=== PATIENT | male | born 1945 | race Caucasian/White ===

== ENCOUNTER 2023-03-29 08:52 | Emergency (ER) | payer MEDICARE, SELFPAY ==
[2023-03-29 08:56] VITALS: BP 167/114
[2023-03-29 08:57] VITALS: BMI 29.8
[2023-03-29 09:00] VITALS: BP 167/114; BP 172/102
--- NOTE | 2023-03-29 09:38 | ED.GENMED ---
History of Present Illness
General
Chief Complaint: Dizziness
Source: patient
Exam Limitations: none
Time Seen by Provider: 03/29/23 09:11
Nursing documentation reviewed up to this point in time: agreed with
Travel History
Have you had any contact with someone who has COVID-19?: No
Do you have any symptoms of coronavirus? Fever > 100 degrees, chills, cough, shortness of breath, sore throat, loss of taste or smell, muscle aches, or headache?: No
History of Present Illness
History of Present Illness:
Patient is a 77-year-old male who presents to the ER for evaluation. Patient reports he was at home today when he felt lightheaded. He reports it lasted for about a minute. He reports he was up last night and was unable to sleep. He was
urinating about once an hour. He denied any pain with urination. Denies any nausea vomiting back pain. He does feel like he is completely emptying his bladder. He denies any recent illness, fever/chills. Denies any associated shortness of
breath, chest pain. Denies any headache.
Past History
Past History
ED Past Medical History: HTN and Hypercholesterolemia
ED Past Surgical History: None
Social History
Tobacco: Non-smoker
Alcohol: None
Drug: None
Personal:
Living: with family
Review of Systems
Review of Systems
Allergies reviewed?: Yes
All Other Systems: ROS reviewed and negative except as documented in HPI and ROS
Constitutional: Reports no symptoms; Denies fever, fatigue or chills
Respiratory: Reports no symptoms; Denies trouble breathing
Cardiac: Reports no symptoms; Denies chest pain
ABD/GI: Reports no symptoms
Musculoskeletal: Reports no symptoms
Skin: Reports no symptoms
Neurological: Reports no symptoms
Psychiatric: Reports no symptoms
Phy Exam
General Physical Exam
General Presentation: no apparent distress
General age: appears stated age
General Skin: warm and dry
General Habitus: normal
General Mental: alert
General Hydration: appears well hydrated
Neurological Exam
Neurological Exam: alert
Musculoskeletal Exam
Musculoskeletal Exam: full ROM
Skin Exam
Skin Exam: normal color and warm/dry
Course
Orders/Labs/Results
Orders:
Orders
03/29/23 08:57
ECG [Electrocardiogram (*1)] Urgent
Reason for Study: Syncope
EKG- Treatment ONCE
03/29/23 09:47
Cardiac Monitoring- Treatment ONCE
IV Insert/Care/Rem.- Treatment PRN
0.9% Sodium Chloride 1000 ml [Nss] 1,000 ml IV BOLUS
03/29/23 10:23
Basic Metabolic Panel Urgent
Complete Blood Count/With Diff Urgent
UA Reflex to Culture [Urinalysis Reflex To Culture] Urgent
Date Specimen was Collected: 03/29/23
Time Specimen was Collected: 10:20
Abnormal Lab Results
03/29/23
10:23
MCH 32.3 H pg
(27.0-31.0)
Plt Count 128 L 10^3/uL
(130-400)
MPV 10.7 H fL
(7.4-10.4)
Absolute Lymphs (auto) 0.7 L 10^3/uL
(1.2-3.4)
Neutrophils % 83.2 H %
(42.2-75.2)
Lymphocytes % 11.3 L %
(20.5-51.1)
Creatinine 0.6 L mg/dL
(0.7-1.3)
Glucose 123 H mg/dl
(70-99)
03/29/23 10:23
03/29/23 10:23
Vital Signs
Initial and Last Documented VS:
Initial Vital Signs
Pulse Resp
67 24
03/29/23 08:55 03/29/23 08:55
Last Documented Vital Signs
Temp Pulse Resp BP Pulse Ox
98.1 F 74 22 152/90 95
03/29/23 09:00 03/29/23 11:00 03/29/23 11:00 03/29/23 11:00 03/29/23 09:15
MDM/Problems Addressed
Differential Diagnosis Includes:
not limited to: Dehydration electrolyte abnormality
MDM/Problems Addressed:
Patient is a 77-year-old male who presented to the ER for evaluation. Patient was up throughout the night and reports he does get this occasionally where he cannot sleep he was urinating a lot but this morning had an episode of lightheadedness
lasted for a minute which the prompted him to come to the ER. He is currently asymptomatic. He denies any associated chest pain shortness of breath with the. He presents awake alert no acute distress. Patient does have a history of hypertension
he does present hypertensive here but denies any recent fevers and is afebrile with a normal white count, normal chemistries, normal UA.
No acute EKG changes. Case d/c w/ ED physician who eval pt. pt stable for d/c home no acute findings
Chronic conditions affecting care:
Hypertension high cholesterol
*Pulse Oximetry
Patient hypoxic: no
*EKG
Heart Rate: 65
Rate: normal
Rhythm: sinus
Interval: first degree heart block
QRS Pattern: right bundle branch block
*Critical Care Note
Total Time (30-74mins, 75-104mins- exclusive of procedures): Not Applicable
Data Reviewed
Review of Other/Old Records Reveals: Other (Echo reviewed from 03/30 shows EF of 55-60% biatrial enlargement mild calcific aortic stenosis )
ED Attending Note
-
Portions of this chart may have been created with voice recognition software.� Occasional wrong word or��sound alike� substitutions may have occurred due to the inherent limitations of voice recognition software.
Discharge Plan
Departure
Patient Disposition: Home (Routine Discharge)
Date of Disposition: 03/29/23
Time of Disposition: 12:17
Patient with high blood pressure during this ER visit?: Yes
Condition: Fair
Covid-19: Not Applicable
Discharge Problem:
Lightheadedness
Instructions: Dizziness, Adult ED, BLOOD PRESSURE
Referrals:
Nasreen Norris MD [Family Provider] -
Activity Restrictions/Additional Instructions:
Stay well-hydrated. Follow-up with your family doctor in the next 2 days for reevaluation. The medication for sleep is called doxylamine.
Return if any worsening of symptoms
Interventions
Interventions:
*Risk Screen - Suicide Last Done: 03/29/23 09:07
*General Assessment Last Done: 03/29/23 09:07
*Neglect/Abuse Screening Last Done: 03/29/23 09:07
*ED COVID-19 Vaccine History Last Done: 03/29/23 09:07
ED- Neurological Assessment Last Done: 03/29/23 11:11
ED- Cardiac Assessment Last Done: 03/29/23 09:07
[2023-03-29 10:38] LABS: Urine Albumin Negative (Neg - Trace); Urine Bilirubin Negative (Negative); Urine Character Clear (Clear); Urine Color Yellow; Urine Glucose Negative (Negative); Urine Ketone Negative (Negative); Urine Leukocyte Negative (Negative); Urine Nitrite Negative (Negative); Urine Occult Blood Negative (Negative); Urine Specific Gravity 1.005 (<1.030); Urine Urobilinogen Negative (Neg - 1+)
[2023-03-29 10:41] LABS: % Basophils 0.3 % (0-2); % Eosinophils 0.2 % (0-6); % Immature Granulocytes 0.3 % (0-0.5); % Lymphocytes 11.3 % (20.5-51.1); % Monocytes 4.7 % (1.7-9.3); % Neutrophils 83.2 % (42.2-75.2); Absolute Lymphocytes 0.7 10^3/uL (1.2-3.4); Absolute Monocytes 0.3 10^3/uL (0.1-0.6); Absolute Neutrophils 4.9 10^3/uL (1.4-6.5); Hematocrit 46.2 % (39.0-52.0); Hemoglobin 16.6 g/dL (13.0-18.0); Mean Corp Hgb Conc. 35.9 g/dL (33.0-37.0); Mean Corpuscular Hgb 32.3 pg (27.0-31.0); Mean Corpuscular Volume 89.9 fL (80.0-94.0); Mean Platelet Volume 10.7 fL (7.4-10.4); Nucleated Red Blood Cells % 0 % (-); Platelet Count 128 10^3/uL (130-400); Red Blood Cell Count 5.14 10^6/uL (4.70-6.10); Red Cell Dist. Width 12.7 % (11.5-14.5); White Blood Cell Count 5.9 10^3/uL (4.8-10.8)
[2023-03-29] MEDS: NSS 1000 IV (10:42)
[2023-03-29 10:44] VITALS: BP 150/101
[2023-03-29 10:45] VITALS: BP 150/101
[2023-03-29 10:59] LABS: Blood Urea Nitrogen 17 mg/dl (9-20); Carbon Dioxide 27 mmol/L (22-30); Chloride 104 mmol/L (98-107); Estimated Creatinine Clearance 114 ml/min; Glucose 123 mg/dl (70-99); Sodium 135 mmol/L (135-145); eGFR > 60.00
[2023-03-29 11:00] VITALS: BP 152/90
== END 2023-03-29 12:57 | disposition home or self-care (01) ==
LOC: EMR 08:52
PROVIDERS: Nurse Practitioner; EMERGENCY PHYSICIAN Emergency Medicine; FAMILY PHYSICIAN Family Medicine
DX: R42 Dizziness and giddiness (principal); I10 Essential (primary) hypertension
CPT/HCPCS: 99284; 96360; 80048; 81003; 85025; 93005

== ENCOUNTER → 2023-05-10 14:29 | Outpatient (REF) | payer MEDICARE, SELFPAY | LOC: RCS 14:29 | PROVIDERS: ATTENDING PHYSICIAN Nurse Practitioner; FAMILY PHYSICIAN Family Medicine | DX: I10 Essential (primary) hypertension (principal); I25.10 Atherosclerotic heart disease of native coronary artery without angina pectoris; E78.00 Pure hypercholesterolemia, unspecified; I77.810 Thoracic aortic ectasia; I35.0 Nonrheumatic aortic (valve) stenosis | CPT/HCPCS: 71250; 93306 ==

== ENCOUNTER → 2023-07-06 06:34 | Day surgery (SDC) | payer MEDICARE, SELFPAY | LOC: GI 06:34 | PROVIDERS: ATTENDING PHYSICIAN Internal Medicine | DX: Z12.11 Encounter for screening for malignant neoplasm of colon (principal); D12.3 Benign neoplasm of transverse colon; D12.5 Benign neoplasm of sigmoid colon; K57.30 Diverticulosis of large intestine without perforation or abscess without bleeding; K64.9 Unspecified hemorrhoids; N40.0 Benign prostatic hyperplasia without lower urinary tract symptoms | CPT/HCPCS: 45385; 45380; 88305 ==

== ENCOUNTER → 2024-06-06 10:32 | Outpatient (REF) | payer MEDICARE, SELFPAY | LOC: HWRAD 10:32 | PROVIDERS: ATTENDING PHYSICIAN Internal Medicine Cardiovascular Disease; FAMILY PHYSICIAN Family Medicine; REFERRING PHYSICIAN Specialist | DX: I77.810 Thoracic aortic ectasia (principal); N43.3 Hydrocele, unspecified | CPT/HCPCS: 71250 ==

== ENCOUNTER → 2024-06-12 09:12 | Outpatient (REF) | payer MEDICARE, SELFPAY ==
[2024-06-12 10:33] LABS: Hematocrit 42.4 % (39.0-52.0); Hemoglobin 14.3 g/dL (13.0-18.0); Mean Corp Hgb Conc. 33.7 g/dL (33.0-37.0); Mean Corpuscular Hgb 32.4 pg (27.0-31.0); Mean Corpuscular Volume 96.1 fL (80.0-94.0); Mean Platelet Volume 9.6 fL (7.4-10.4); Platelet Count 255 10^3/uL (130-400); Red Blood Cell Count 4.41 10^6/uL (4.70-6.10); Red Cell Dist. Width 12.1 % (11.5-14.5); White Blood Cell Count 8.1 10^3/uL (4.8-10.8)
[2024-06-12 11:04] LABS: Blood Urea Nitrogen 20 mg/dl (9-20); Calcium 9.2 mg/dl (8.4-10.2); Carbon Dioxide 29 mmol/L (22-30); Chloride 103 mmol/L (98-107); Glucose 104 mg/dl (70-99); Potassium 4.2 mmol/L (3.5-5.1); Sodium 140 mmol/L (135-145); eGFR > 60.00
== END ==
LOC: SDSPAT 09:12
PROVIDERS: ATTENDING PHYSICIAN Specialist; FAMILY PHYSICIAN Family Medicine
DX: Z01.818 Encounter for other preprocedural examination (principal)
CPT/HCPCS: 36415; 80048; 85027

== ENCOUNTER 2024-06-13 06:23 | Day surgery (SDC) | payer MEDICARE, SELFPAY ==
[2024-06-12 11:51] VITALS: BMI 25.6
[2024-06-13] VITALS (13 sets, daily range): BP systolic 116–154; BP diastolic 69–87; BMI 25.6
--- NOTE | 2024-06-13 18:49 | W.PN.URO.CBU ---
Today's Communication / Plan
-
exoect drainage in scrotal drssing reinforce or replace
Assessment / Plan
-
iv ice analgesic
Diagnosis
-
Date of Service: June 13, 2024
-
Patient Diagnosis:rt hemiscroatl abscecc drianed debrided has renate drain bottom of scrotum
Post Op Day: 0
Subjective
-
sore
Objective
-
Vital Signs
Temp Pulse Resp BP Pulse Ox
97.9 F 69 18 154/87 95
06/13/24 15:00 06/13/24 15:00 06/13/24 15:00 06/13/24 15:00 06/13/24 15:00
Review of Systems
-
: Other (tender post op)
Physical Exam
-
General - well developed, well nourished, no acute distress
Chest - clear bilaterally
Abdomen - soft, non-tender, positive bowel sounds, no CVAT, no incisional pain or distention
Genitalia - normal
Rectal - normal
Skin - warm & dry with no rash
Neuro - AOx3, no motor deficits
Extremities - no clubbing, no cyanosis, no edema
Incision - clean, dry
Dressing - clean, dry, intactwet min blood
Care Review
Data Reviewed
Discussed with: Nursing and Family
[2024-06-13] MEDS: TORADOL 15 MG IV (19:15)
[2024-06-13 19:32] LABS: Hematocrit 37.1 % (39.0-52.0); Hemoglobin 12.8 g/dL (13.0-18.0)
[2024-06-13] MEDS: NSS with KCL 20 MEQ 1000 IV (19:42)
[2024-06-13 19:51] LABS: Blood Urea Nitrogen 20 mg/dl (9-20); Calcium 8.1 mg/dl (8.4-10.2); Carbon Dioxide 23 mmol/L (22-30); Chloride 104 mmol/L (98-107); Estimated Creatinine Clearance 95 ml/min; Glucose 119 mg/dl (70-99); Potassium 3.9 mmol/L (3.5-5.1); Sodium 138 mmol/L (135-145); eGFR > 60.00
[2024-06-13] MEDS: TOPROL XL 25 MG PO (21:53)
[2024-06-13] MEDS: PROZAC 20 MG PO (21:53)
[2024-06-13] MEDS: ZETIA 10 MG PO (21:54)
[2024-06-13] MEDS: ZESTRIL 20 MG PO (21:54)
[2024-06-14] MEDS: TORADOL 15 MG IV ×3 (00:34→14:26)
[2024-06-14] MEDS: NSS with KCL 20 MEQ 1000 IV (05:13)
[2024-06-14 06:15] LABS: Hemoglobin 11.8 g/dL (13.0-18.0); Mean Corp Hgb Conc. 34.7 g/dL (33.0-37.0); Mean Corpuscular Hgb 32.6 pg (27.0-31.0); Mean Corpuscular Volume 93.9 fL (80.0-94.0); Mean Platelet Volume 9.5 fL (7.4-10.4); Platelet Count 217 10^3/uL (130-400); Red Blood Cell Count 3.62 10^6/uL (4.70-6.10); White Blood Cell Count 6.6 10^3/uL (4.8-10.8)
[2024-06-14 06:44] LABS: Blood Urea Nitrogen 18 mg/dl (9-20); Calcium 7.9 mg/dl (8.4-10.2); Carbon Dioxide 24 mmol/L (22-30); Chloride 107 mmol/L (98-107); Estimated Creatinine Clearance 95 ml/min; Glucose 139 mg/dl (70-99); Potassium 4.6 mmol/L (3.5-5.1); Sodium 137 mmol/L (135-145); eGFR > 60.00
[2024-06-14 07:25] VITALS: BP 143/87
[2024-06-14] MEDS: LOW STRENGTH ASPIRIN 81 MG PO (08:20)
[2024-06-14] MEDS: THERAGRAN 1 TABLET PO (08:20)
[2024-06-14] MEDS: CRESTOR 10 MG PO (08:20)
[2024-06-14] MEDS: MAG-TAB SR 84 MG PO (08:21)
[2024-06-14] MEDS: ZESTRIL 20 MG PO ×2 (08:23→19:44)
[2024-06-14] MEDS: NORVASC 10 MG PO (08:23)
[2024-06-14] MEDS: METAMUCIL, KONSYL 1 PACKET PO (08:23)
[2024-06-14] MEDS: COLACE 100 MG PO ×3 (08:28→17:58)
--- NOTE | 2024-06-14 10:48 | CM ---
Initial assessment completed. Patient resides w/ spouse in a 2[facility]- 2 steps to enter from the garage. Independent w/ ambulating, no device required. Independent w/ ADLs. Patient is active as he plays golf a few days a week and works out. No SNF/HC hx
reported. Patient engaged in OP therapy in the past following hip replacement.
Address, point of contact and insurance verified
PCP: Nasreen Norris
Pharmacy: [facility]
Plan: Home, no needs likely
--- NOTE | 2024-06-14 10:50 | W.PN.URO.CBU ---
Today's Communication / Plan
-
encourage oob hl iv stop TEDS
Assessment / Plan
-
iv ice analgesic oob stop sequntial teds hl iv
Diagnosis
-
Date of Service: June 14, 2024
-
Patient Diagnosis:
Post Op Day:
Patient Diagnosis:rt hemiscrotal abscess. Drained and debrided has renate drain bottom of scrotum
Post Op Day: 1
Subjective
-
less pain no fever
Objective
-
Vital Signs
Temp Pulse Resp BP Pulse Ox
98.2 F 73 16 143/87 95
06/14/24 07:25 06/14/24 07:25 06/14/24 07:25 06/14/24 08:23 06/14/24 07:25
Intake and Output
06/13/24 06/14/24 06/15/24
06:59 06:59 06:59
Intake Total 820 / 820 1999
Output Total 1200 / 1200
Balance -380 / -380 1999
Intake:
Oral fluids 620 / 620
IV fluids (Total) 200 / 200 1999
normosol 200 / 200
Output:
Urine, Voided 700 / 700
Straight cath output 500 / 500
Laboratory Results
06/14/24 05:48
06/14/24 05:48
Review of Systems
-
: Other (post op pain mildpenrose drainage)
Physical Exam
-
General - well developed, well nourished, no acute distress
Chest - clear bilaterally
Abdomen - soft, non-tender, positive bowel sounds, no CVAT, no incisional pain or distention
Genitalia - normal
Rectal - normal
Skin - warm & dry with no rash
Neuro - AOx3, no motor deficits
Extremities - no clubbing, no cyanosis, no edema
Incision - clean, dry
Dressing - clean, dry, intact
Care Review
Data Reviewed
Discussed with: Nursing
[2024-06-14 11:20] VITALS: BP 148/85
[2024-06-14] MEDS: STERILE WATER FOR INJECTION 10 ML IV (14:28)
[2024-06-14] MEDS: ROCEPHIN 1000 MG IV (14:28)
[2024-06-14 15:15] VITALS: BP 123/76
[2024-06-14] MEDS: NSS with KCL 20 MEQ IV (16:42)
[2024-06-14] MEDS: TORADOL IV (19:00)
[2024-06-14 19:34] VITALS: BP 144/78
[2024-06-14] MEDS: TYLENOL 650 MG PO (19:43)
[2024-06-14] MEDS: MELATONIN 5 MG PO (21:19)
[2024-06-14] MEDS: PROZAC 20 MG PO (21:20)
[2024-06-14] MEDS: ZETIA 10 MG PO (21:20)
[2024-06-14] MEDS: TOPROL XL 25 MG PO (21:20)
[2024-06-14 23:00] VITALS: BP 134/86
[2024-06-15] MEDS: TORADOL IV (01:00)
[2024-06-15] MEDS: TYLENOL 650 MG PO (04:45)
[2024-06-15 05:09] VITALS: BP 134/86
[2024-06-15 07:12] VITALS: BP 115/71
[2024-06-15] MEDS: METAMUCIL, KONSYL 1 PACKET PO (08:34)
[2024-06-15] MEDS: MAG-TAB SR 84 MG PO (08:35)
[2024-06-15] MEDS: COLACE 100 MG PO ×3 (08:35→17:29)
[2024-06-15] MEDS: NORVASC 10 MG PO (08:35)
[2024-06-15] MEDS: ZESTRIL 20 MG PO ×2 (08:35→21:14)
[2024-06-15] MEDS: CRESTOR 10 MG PO (08:35)
[2024-06-15] MEDS: THERAGRAN 1 TABLET PO (08:36)
[2024-06-15] MEDS: MOBIC 7.5 MG PO (08:42)
--- NOTE | 2024-06-15 11:11 | W.PN.URO.CBU ---
Today's Communication / Plan
-
MAY SHOWER THEN [employer] HOME TENTATIVELY MON
Assessment / Plan
-
iv ice analgesic oob stop sequntial teds hl iv
Diagnosis
-
Date of Service: June 15, 2024
-
Patient Diagnosis:
Post Op Day:
Patient Diagnosis:
Post Op Day:
Patient Diagnosis:rt hemiscrotal abscess. Drained and debrided has renate drain bottom of scrotum
Post Op Day: 1
Subjective
-
FEELING BETTER STILL PAIN DRAINAGE
Objective
-
Vital Signs
Temp Pulse Resp BP Pulse Ox
98.1 F 49 16 115/71 94
06/15/24 07:12 06/15/24 07:12 06/15/24 07:12 06/15/24 07:12 06/15/24 07:12
Intake and Output
06/14/24 06/15/24 06/16/24
06:59 06:59 06:59
Intake Total 820 / 820 3780 / 3780 480 / 480
Output Total 1200 / 1200 1150 / 1150
Balance -380 / -380 2630 / 2630 480 / 480
Intake:
Oral fluids 620 / 620 1780 / 1780 480 / 480
IV fluids (Total) 200 / 200 2000 / 2000
normosol 200 / 200
Output:
Urine, Tsai 800 / 800
Urine, Voided 700 / 700 350 / 350
Straight cath output 500 / 500
Other:
Number of approximated MODERATE 2
amounts of urine
Laboratory Results
06/14/24 05:48
06/14/24 05:48
Review of Systems
-
: Other (SWOLEN RT HEMISCROTUM PHLEGMON NO FLUID COLLECTION HEALING)
Physical Exam
-
General - well developed, well nourished, no acute distress
Chest - clear bilaterally
Abdomen - soft, non-tender, positive bowel sounds, no CVAT, no incisional pain or distention
Genitalia - normal
Rectal - normal
Skin - warm & dry with no rash
Neuro - AOx3, no motor deficits
Extremities - no clubbing, no cyanosis, no edema
Incision - clean, dry
Dressing - clean, dry, intact
Care Review
Data Reviewed
Discussed with: Nursing
[2024-06-15] MEDS: STERILE WATER FOR INJECTION 10 ML IV (12:51)
[2024-06-15] MEDS: ROCEPHIN 1000 MG IV (12:51)
[2024-06-15 14:58] VITALS: BP 124/78
[2024-06-15] MEDS: ZETIA 10 MG PO (21:12)
[2024-06-15] MEDS: PROZAC 20 MG PO (21:12)
[2024-06-15] MEDS: MELATONIN 5 MG PO (21:12)
[2024-06-15] MEDS: TOPROL XL 25 MG PO (21:14)
[2024-06-15 23:25] VITALS: BP 133/75
[2024-06-16 07:40] VITALS: BP 156/95
--- NOTE | 2024-06-16 08:48 | CM ---
Addendum entered by Leonela Perea RN 06/16/24 09:35:
Patient is leaving with Mag[facility] drain with plan for removal on 06/17. Patient feels confident taking care of drain.
Original Note:
Cm reviewed medical records. Patient is medically ready for discharge. No needs noted.
PLAN: Home no needs.
[2024-06-16] MEDS: NORVASC 10 MG PO (09:00)
[2024-06-16] MEDS: ZESTRIL 20 MG PO (09:00)
[2024-06-16] MEDS: THERAGRAN 1 TABLET PO (09:00)
[2024-06-16] MEDS: MOBIC 7.5 MG PO (09:01)
[2024-06-16] MEDS: CRESTOR 10 MG PO (09:01)
[2024-06-16] MEDS: COLACE 100 MG PO (09:01)
[2024-06-16] MEDS: MAG-TAB SR 84 MG PO (09:01)
[2024-06-16] MEDS: METAMUCIL, KONSYL 1 PACKET PO (09:02)
== END 2024-06-16 11:20 | disposition home or self-care (01) ==
LOC: SDS 06:23
PROVIDERS: ATTENDING PHYSICIAN Specialist; FAMILY PHYSICIAN Family Medicine
DX: N43.41 Spermatocele of epididymis, single (principal); N43.3 Hydrocele, unspecified; L03.314 Cellulitis of groin
CPT/HCPCS: 55040; 54700; 54840; 88304; 80048; 85014; 85018; 85027; 87070; 87075; 87205